=== PATIENT | male | born 1960 | race Native Hawaiian/Other Pacific Islander ===

== ENCOUNTER 2017-10-21 10:48 | Emergency (ER) | payer MEDICAID ==
[2017-10-21 11:02] VITALS: TEMP 98.2
[2017-10-21 11:51] LABS: BASO % 0.4 % (0.0-2.0); EOS # 0.3 K/uL (0.0-0.7); EOS % 4.8 % (0.0-4.0); HEMOGLOBIN 15.9 g/dL (12.0-18.0); LYMPH # 1.4 K/uL (1.0-4.3); MEAN CELL VOLUME 89.4 fL (80.0-94.0); MEAN CORPUSCULAR HEMOGLOBIN 30.1 pg (27.0-31.0); MEAN CORPUSCULAR HGB CONC 33.6 g/dL (33.0-37.0); MEAN PLATELET VOLUME 8.2 fL (7.2-11.7); MONO # 0.4 K/uL (0.0-0.8); MONO % 6.6 % (0.0-10.0); NEUT # 4.4 K/uL (1.8-7.0); NEUT % 67.2 % (50.0-75.0); NRBC % 0.1 % (0.0-2.0); RBC 5.28 Mil/uL (4.40-5.90); RED CELL DISTRIBUTION WIDTH 13.1 % (11.5-14.5); WHITE BLOOD COUNT 6.5 K/uL (4.8-10.8)
[2017-10-21 12:06] LABS: CALCIUM 8.8 mg/dl (8.6-10.4); GFR AFRICAN-AMERICAN > 60; GFR NON-AFRICAN AMERICAN > 60
[2017-10-21 12:10] LABS: ALBUMIN 4.3 g/dL (3.5-5.0); ALT/SGPT 20 U/L (21-72); AST/SGOT 52 U/L (17-59); BLOOD UREA NITROGEN 16 mg/dL (9-20)
[2017-10-21] MEDS ORDERED: Iodixanol 320 MG/ML 100 ML BOTTLE IV ONE (13:28)
[2017-10-21 15:49] VITALS: RESP 20
--- NOTE | 2017-10-21 15:55 | C.PDOC ---
History Of Present Illness 57 year old male presents to the ED with complaint of bloody discharge to his right ear which has been intermittent for 4-5 weeks. Patient was evaluated by Dr. Ramos, who sent him to the ED for labwork and CT scan. Patient denies fever , chills. Chief Complaint (Nursing): ENT Problem History Per: Patient History/Exam Limitations: None Onset/Duration Of Symptoms: Other (4-5 weeks ) Current Symptoms Are (Timing): Still Present Quality (Ear): Discharge Past Medical History Reviewed: Historical Data, Nursing Documentation, Vital Signs Vital Signs: Last Vital Signs Temp 98.2 F 10/21/17 11:00 Pulse 68 10/21/17 17:35 Resp 20 10/21/17 17:35 BP 115/69 10/21/17 17:35 Pulse Ox 95 10/21/17 18:22 - Medical History PMH: No Chronic Diseases Surgical History: No Surg Hx Family History: States: Unknown Family Hx - Social History Hx Alcohol Use: No Hx Substance Use: No - Immunization History Hx Tetanus Toxoid Vaccination: No Hx Influenza Vaccination: No Hx Pneumococcal Vaccination: No Review Of Systems Constitutional: Negative for: Fever, Chills ENT: Positive for: Ear Discharge (right) Physical Exam - Physical Exam Appears: Non-toxic, No Acute Distress Skin: Normal Color, Warm, Dry Head: Atraumatic, Normacephalic Eye(s): bilateral: Normal Inspection Ear(s): Left: Normal, Right: Other (blood discharge. unable to visualize TM) Nose: Normal, No Discharge Oral Mucosa: Moist Neck: Supple Chest: Symmetrical, No Deformity, No Tenderness Cardiovascular: Rhythm Regular, No Murmur Respiratory: Normal Breath Sounds, No Rales, No Rhonchi, No Wheezing Extremity: Normal ROM, Capillary Refill (less than 2 seconds ) Neurological/Psych: Oriented x3, Normal Speech, Normal Cognition ED Course And Treatment - Laboratory Results Result Diagrams: 10/21/17 11:46 10/21/17 11:46 O2 Sat by Pulse Oximetry: 95 (on RA) Pulse Ox Interpretation: Normal - CT Scan/US CT A/P Other Rad Studies (CT/US): Interpreted By Me, Read By Radiologist, Radiology Report Reviewed CT/US Interpretation: PROCEDURE: CT scan temporal bones dated 10/21/2017. COMPARISON: No prior study available for comparison. TECHNIQUE: High resolution axial images of the temporal bones were obtained following intravenous injection of approximately 100 cc Visipaque 320 contrast material. . Coronal and sagittal reformats were generated. Radiation dose: Total exam DLP = 1160.91 mGy-cm. This CT exam was performed using one or more of the following dose reduction techniques: Automated exposure control, adjustment of the mA and/or kV according to patient size, and/or use of iterative reconstruction technique. . FINDINGS: Chronic appearing erosive/ destructive changes of the right mastoid air complex as well as right right middle ear canal /contents including right ossicular chain with apparent dehiscence of the tegmen tympani. There is a somewhat rounded hyperdense focus with and central area of very low attenuation presumably representing air this hyperdense focus extends inferiorly into the right external auditory canal. The ill-defined soft tissue seen surrounding this hyperdense focus which may represent a cholesteatoma must be at considered or other chronic infectious/inflammatory process at the considered. Ill-defined soft tissue seen throughout the remaining right external auditory canal that could represent either postoperative granulation tissue and/or infectious/inflammatory in inflammatory changes of the soft tissues within the external auditory canal. The left mastoid air complex appears somewhat underpneumatized though otherwise intact. The left middle ear canal and contents unremarkable. Mild mucosal thickening noted within both maxillary antra right greater than left as well as multiple ethmoid air cells extending superiorly into the inferior margin of the frontal sinus. There is also mucosal thickening in the sphenoid sinus. IMPRESSION: Chronic appearing erosive/ destructive changes of the right mastoid air complex as well as right right middle ear canal/contents including right ossicular chain with apparent dehiscence of the tegmen tympani. There is a somewhat rounded hyperdense focus with and central area of very low attenuation presumably representing air this hyperdense focus extends inferiorly into the right external auditory canal. The ill-defined soft tissue seen surrounding this hyperdense focus which may represent a cholesteatoma must be at considered or other chronic infectious/inflammatory process at the considered. Ill-defined soft tissue seen throughout the remaining right external auditory canal that could represent either postoperative granulation tissue and/or infectious/ inflammatory in inflammatory changes of the soft tissues within the external auditory canal. Ill-defined soft tissue seen throughout the remaining right external auditory canal that could represent either postoperative granulation tissue and/or infectious/inflammatory in inflammatory changes of the soft tissues within the external auditory canal. Note these findings were discussed with Dr. Retana approximately 3:50 p.m. with written down and read back verification. Medical Decision Making Medical Decision Making: Impression: 57 year old male with bloody discharge in right ear Plan: * bloodwork * CT Internal Auditory Canal * reassess and disposition Progress: Bloodwork and CT Internal Auditory Canal ordered and reviewed. Patient to be discharged as per Dr. Ramos. Patient will follow up with Dr. Mode Peterson tomorrow for surgical intervention. Patient understands plan. CD of radiological studies given to patient. Disposition - Disposition Referrals: Mode Peterson MD [Medical Doctor] - Disposition: HOME/ ROUTINE Disposition Time: 16:00 Condition: STABLE Additional Instructions: Thank you for letting us take care of you today. The emergency medical care you received today was directed at your acute symptoms. If you were prescribed any medication, please fill it and take as directed. It may take several days for your symptoms to resolve. Return to the Emergency Department if your symptoms worsen, do not improve, or if you have any other problems. Please contact your doctor or call one of the physicians/clinics you have been referred to that are listed on the Patient Visit Information form that is included in your discharge packet. Bring any paperwork you were given at discharge with you along with any medications you are taking to your follow up visit. Our treatment cannot replace ongoing medical care by a primary care provider (PCP) outside of the emergency department. Thank you for allowing the [facility] team to be part of your care today. FOLLOW UP WITH DR. DEMETRIA PETERSON TOMORROW. TAKE THE ANTIBIOTICS DIRECTED. TAKE ALL INFORMATION GIVEN TO YOU HERE TO THE APPOINTMENT TOMORROW. Prescriptions: Amoxicillin/Clavulanate [Augmentin 875 MG-125 MG] 1 tab PO BID #14 tab Ibuprofen [Motrin] 600 mg PO Q6 PRN #20 tab PRN Reason: Pain, Moderate (4-7) Instructions: Mastoiditis (DC) Forms: [employer] (Korean) - Clinical Impression Clinical Impression: Mastoid cholesteatoma - Scribe Statement The provider has reviewed the documentation as recorded by the Scribe Provider Attestation: All medical record entries made by the Scribe were at my direction and personally dictated by me. I have reviewed the chart and agree that the record accurately reflects my personal performance of the history, physical exam, medical decision making, and the department course for this patient. I have also personally directed, reviewed, and agree with the discharge instructions and disposition.
--- NOTE | 2017-10-21 15:59 | CT ---
PROCEDURE: CT scan temporal bones dated 10/21/2017 COMPARISON: No prior study available for comparison TECHNIQUE: High resolution axial images of the temporal bones were obtained following intravenous injection of approximately 100 cc Visipaque 320 contrast material. . Coronal and sagittal reformats were generated. Radiation dose: Total exam DLP = 1160.91 mGy-cm. This CT exam was performed using one or more of the following dose reduction techniques: Automated exposure control, adjustment of the mA and/or kV according to patient size, and/or use of iterative reconstruction technique. . FINDINGS: Chronic appearing erosive/ destructive changes of the right mastoid air complex as well as right right middle ear canal/contents including right ossicular chain with apparent dehiscence of the tegmen tympani. There is a somewhat rounded hyperdense focus with and central area of very low attenuation presumably representing air this hyperdense focus extends inferiorly into the right external auditory canal. The ill-defined soft tissue seen surrounding this hyperdense focus which may represent a cholesteatoma must be at considered or other chronic infectious/inflammatory process at the considered. Ill-defined soft tissue seen throughout the remaining right external auditory canal that could represent either postoperative granulation tissue and/or infectious/inflammatory in inflammatory changes of the soft tissues within the external auditory canal. The left mastoid air complex appears somewhat underpneumatized though otherwise intact. The left middle ear canal and contents unremarkable. Mild mucosal thickening noted within both maxillary antra right greater than left as well as multiple ethmoid air cells extending superiorly into the inferior margin of the frontal sinus. There is also mucosal thickening in the sphenoid sinus. IMPRESSION: Chronic appearing erosive/ destructive changes of the right mastoid air complex as well as right right middle ear canal/contents including right ossicular chain with apparent dehiscence of the tegmen tympani. There is a somewhat rounded hyperdense focus with and central area of very low attenuation presumably representing air this hyperdense focus extends inferiorly into the right external auditory canal. The ill-defined soft tissue seen surrounding this hyperdense focus which may represent a cholesteatoma must be at considered or other chronic infectious/inflammatory process at the considered. Ill-defined soft tissue seen throughout the remaining right external auditory canal that could represent either postoperative granulation tissue and/or infectious/inflammatory in inflammatory changes of the soft tissues within the external auditory canal. Ill-defined soft tissue seen throughout the remaining right external auditory canal that could represent either postoperative granulation tissue and/or infectious/inflammatory in inflammatory changes of the soft tissues within the external auditory canal. Note these findings were discussed with Dr. Retana approximately 3:50 p.m. with written down and read back verification.
[2017-10-21] MEDS ORDERED: Amoxicillin-Clav 875-125 mg Tab PO STA (17:02)
[2017-10-21] MEDS ORDERED: Amoxicillin-Clav 875-125 mg Tab PO ONE (17:38)
[2017-10-21 18:05] VITALS: BP 115/69; PULSE 68
[2017-10-21 18:22] VITALS: O2SAT 95
== END 2017-10-21 17:40 | disposition home or self-care (01) ==
LOC: C.ER 10:48
DX: H71.21 Cholesteatoma of mastoid, right ear (principal)
CPT/HCPCS: 70480; 80053; 85025; 99284; Q9967